=== PATIENT | female | born 1995 | race Caucasian/White ===

== ENCOUNTER 2019-03-13 18:14 | Emergency (ER) | payer SELFPAY ==
[~2019-03-13] VITALS: Ht 162.6 cm; Wt 90.4 kg
[2019-03-13 18:22] VITALS: Ht 162.6 cm; Wt 90.4 kg
--- NOTE | 2019-03-13 19:10 | ERD ---
ER Documentation Chief Complaint Chief Complaint 3d c/o: abd cramping rad to low back. irreg periods, no bleed now. HPI 23-year-old female, previously healthy, presents the emergency department, complaining of 3 days with cramping abdominal pain associated with irregular periods. Otherwise, the patient denies diarrhea or vomiting, no fever or chills. No reports of urinary symptoms, the pain is cramping, intermittent, 5/10. ROS All systems reviewed and are negative except as per history of present illness. Medications Home Meds Active Scripts Metformin* (Glucophage*) 500 Mg Tab, 500 MG PO BID, #60 TAB Prov:LORRAINE BACH MD 03/13/19 Acetaminophen* (Tylenol*) 325 Mg Tablet, 2 TAB PO Q6 PRN for PAIN AND OR ELEVATED TEMP, #20 TAB Prov:LORRAINE BACH MD 03/13/19 Allergies Allergies: Coded Allergies: No Known Allergy (Unverified , 03/13/19) Physical Exam Vitals Vital Signs Date Temp Pulse Resp B/P (MAP) Pulse Ox O2 O2 Flow FiO2 Time Delivery Rate 03/13/19 98.3 56 16 111/72 97 Room Air 21:35 (85) 03/13/19 98.9 76 16 148/93 97 18:22 (111) Physical Exam Const: No acute distress Head: Atraumatic Eyes: Normal Conjunctiva ENT: Normal External Ears, Nose and Mouth. Neck: Full range of motion. No meningismus. Resp: Clear to auscultation bilaterally Cardio: Regular rate and rhythm, no murmurs Abd: Soft, non tender, non distended. Normal bowel sounds Skin: No petechiae or rashes Back: No midline or flank tenderness Ext: No cyanosis, or edema Neur: Awake and alert Psych: Normal Mood and Affect Result Diagram: 03/13/19194303/13/191943 Results 24 hrs Laboratory Tests Test 03/13/19 19:44 03/13/19 19:49 White Blood Count 10.7 10^3/ul Red Blood Count 5.25 10^6/ul Hemoglobin 15.2 g/dl Hematocrit 45.1 % Mean Corpuscular Volume 85.9 fl Mean Corpuscular Hemoglobin 29.0 pg Mean Corpuscular Hemoglobin Concent 33.7 g/dl Red Cell Distribution Width 12.1 % Platelet Count 378 10^3/UL Mean Platelet Volume 10.3 fl Immature Granulocytes % 0.300 % Neutrophils % 51.7 % Lymphocytes % 41.1 % Monocytes % 5.2 % Eosinophils % 1.2 % Basophils % 0.5 % Nucleated Red Blood Cells % 0.0 /100WBC Immature Granulocytes # 0.030 10^3/ul Neutrophils # 5.5 10^3/ul Lymphocytes # 4.4 10^3/ul Monocytes # 0.6 10^3/ul Eosinophils # 0.1 10^3/ul Basophils # 0.1 10^3/ul Nucleated Red Blood Cells # 0.0 10^3/ul Urine Color YELLOW Urine Clarity CLEAR Urine pH 6.0 Urine Specific [place] 1.032 Urine Ketones NEGATIVE mg/dL Urine Nitrite NEGATIVE mg/dL Urine Bilirubin NEGATIVE mg/dL Urine Urobilinogen NEGATIVE mg/dL Urine Leukocyte Esterase NEGATIVE [place]/ul Urine Microscopic RBC 1 /HPF Urine Microscopic WBC 1 /HPF Urine Squamous Epithelial Cells FEW /HPF Urine Hemoglobin 1+ mg/dL Urine Glucose 3+ mg/dL Urine Total Protein NEGATIVE mg/dl Sodium Level 139 mmol/L Potassium Level 3.8 mmol/L Chloride Level 99 mmol/L Carbon Dioxide Level 26 mmol/L Anion Gap 14 Blood Urea Nitrogen 10 mg/dl Creatinine 0.50 mg/dl Est Glomerular Filtrat Rate mL/min > 60 mL/min Glucose Level 297 mg/dl Calcium Level 10.2 mg/dl Total Bilirubin 0.3 mg/dl Direct Bilirubin 0.00 mg/dl Indirect Bilirubin 0.3 mg/dl Aspartate Amino Transf (AST/SGOT) 146 IU/L Alanine Aminotransferase (ALT/SGPT) 201 IU/L Alkaline Phosphatase 142 IU/L Total Protein 9.0 g/dl Albumin 4.8 g/dl Globulin 4.20 g/dl Albumin/Globulin Ratio 1.14 Lipase 102 U/L POC Beta HCG, Qualitative NEGATIVE Current Medications Medications Dose Sig/Harpreet Start Time Status Last (Trade) Ordered Route PRN Stop Time Admin Dose Reason Admin Sodium 1,000 ml @ Q1H STAT 03/13/19 DC 03/13/19 Chloride 1,000 mls/hr IV 19:25 19:45 03/13/19 20:24 Ondansetron 4 mg ONCE STAT 03/13/19 DC 03/13/19 HCl (Zofran IV 19:25 19:45 Inj) 03/13/19 19:27 Ketorolac 15 mg ONCE STAT 03/13/19 DC 03/13/19 Tromethamine IV 19:25 19:55 (Toradol) 03/13/19 19:27 DIAGNOSTIC IMAGING REPORT Patient: ANA FELDMAN : 1995 Age: 23 Sex: F MR #: [id number] DOS: 03/13/191924 Ordering MD: LORRAINE BACH MD Location: [facility] Room/Bed: PROCEDURE: CT abdomen and pelvis without contrast. CLINICAL INDICATION: Abdominal Pain TECHNIQUE: CT scan of the abdomen and pelvis without oral contrast was performed and is reconstructed at 2.5 mm contiguous axial intervals from the dome of the diaphragm to the inferior pubic rami.. The patient was scanned without intravenous contrast. Sagittal and coronal reformatted images were obtained from the axial source images. The calculated radiation dose measures 1521 mGy centimeters. The CTDI measures 24 mGy. Individualized dose optimization technique was used for the performance of this exam. This included 1. Automated exposure control. 2. Adjustment of the mA and / or kV according to the patient's size. 3. Use of iterative reconstructed technique. DICOM images are available. COMPARISON: None. FINDINGS: The lung bases are clear of any infiltrate or nodule. No effusion is seen. The liver is of normal size and contour with no mass or ductal dilatation. There is fatty infiltration. No gallstones are visualized. No splenic, adrenal or pancreatic abnormalities present. Kidneys are of normal size and contour. No hydronephrosis, calculus or mass Is seen. Ureters are of normal course and caliber with no stone. No bladder mass or stone is present. Uterus and ovaries appear normal. There is no aneurysm. No adenopathy is present. No bowel mass or obstruction is present. The appendix is normal. No phlegmon, ascites or pneumoperitoneum is visualized. The osseous structures are intact. IMPRESSION: No evidence of urolithiasis, obstructive uropathy, diverticulitis or appendicitis. Fatty liver. .Andres Marino MD, MD Date Time Electronically viewed and signed by .Andres Marino MD, on 03/13/2019 21:02 Procedures/MDM Vital signs stable. Differential diagnosis include but not limited to: UTI, colitis, gastroenteritis, kidney stones, irritable bowel syndrome, inflammatory bowel syndrome, malabsorption syndrome, cholelithiasis, food intolerance, medication side effect, pancreatitis, diverticulitis, bowel obstruction. Physical examination and clinical presentation consistent most likely with newly diagnosed diabetes, no evidence of UTI, no evidence of acidosis, no clinical findings suspicious for acute abdomen. During the ED course the patient remained stable, no new complaints. The patient received treatment with IV fluids and IV medications presenting overall improvement of the symptoms. Results and clinical impression discussed with the patient who agrees with management. The patient is stable to be treated outpatient and will be discharged home; some side effects of prescribed medications (headache, rash, nausea, vomiting, diarrhea, drowsiness, habituation, bleeding, hypertension, interactions with other medications) were reviewed. The patient was informed that the evaluation in the emergency department has been done to rule out an acute emergency, therefore, chronic conditions like malignancy or other diseases have not been evaluated; therefore, the patient was instructed to follow up with the primary care provider in the next 48h. If symptoms persist, worsen or new symptoms develop, then patient should return to the ED immediately. Instructions explained and given directly by me to the patient with ac knowledgment and demonstrated understanding. Disclaimer: Inadvertent spelling and grammatical errors are likely due to EHR/dictation software use and do not reflect on the overall quality of patient care. Also, please note that the electronic time recorded on this note does not necessarily reflect the actual time of the patient encounter. Departure Diagnosis: Primary Impression: Abdominal pain Additional Impressions: Newly diagnosed diabetes Fatty liver Condition: Stable Additional Instructions: Thank you very much for allowing us to participate in your care. Your health and safety is our top priority at [facility]. The evaluation in the emergency department has been done to rule out an acute emergency. Chronic, [id number] conditions may have not been evaluated; therefore, you need to follow up with a primary care provider in the next 48h. If symptoms persist, worsen or new symptoms develop, then patient should return to the ED immediately. Call your primary care doctor TOMORROW for an appointment during the next 2-4 days and bring all the information provided. Have prescriptions filled and follow precisely the directions on the label. If the symptoms get worse and your provider is unavailable, return to the E mergency Department immediately. LORRAINE BACH MD Mar 13, 2019 19:10
[2019-03-13] MEDS ORDERED: ONDANSETRON 4 MG INJ IV STA (19:25)
[2019-03-13] MEDS ORDERED: KETOROLAC 15 MG INJ IV STA (19:25)
[2019-03-13] MEDS ORDERED: SOD CHLORIDE 0.9% 1,000 ML IV STA (19:25)
[2019-03-13] MEDS ORDERED: ACET325T33 PO (21:30)
[2019-03-13] MEDS ORDERED: METF-849 PO (21:30)
[2019-03-13 21:35] VITALS: BP 111/72; PULSE 56; RESP 16
== END 2019-03-13 21:55 | disposition home or self-care (01) ==
LOC: FTE 18:14
DX: K76.0 Fatty (change of) liver, not elsewhere classified (principal); E11.9 Type 2 diabetes mellitus without complications
CPT/HCPCS: 74176; 80053; 81001; 81025; 83690; 85025; J1885; J2405; J7030; 36415; 96361; 96374; 96375